=== PATIENT | female | born 1965 | race Asian ===

== ENCOUNTER → 2017-09-01 | Day surgery (SDC) | payer OTHER ==
[~2017-09-01] VITALS: Ht 142.2 cm; Wt 46.3 kg
[~2017-09-01] MED LIST: CALCIUM 500 +1 EAC5 PO; CLONIDINE HCL0.1 MG PO; LYRICA25 M1 PO; MAGNESIUM400 M1 PO; MONTELUKAST SOD10 M1 PO; OMEGA 3-6-9 11200 MG PO; OMEPRAZOLE40 M1 PO; VENTOLIN HFA18 GM INH; VITAMIN B122500 MC1; VITAMIN C1000 M4
--- NOTE | 2017-09-01 10:53 | Operative Report ---
Operative/Inv Procedure Report Surgery Date: 09/01/17 Name of Procedure: left shoulder arthroscope rotator cuff repair arthroscopic subacromial decompression acromioclavicular arthroplasty biceps tenodesis and debridement left slap lesion Pre-Operative Diagnosis: Internal derangement left shoulder Post-Operative Diagnosis: SLAP tear biceps tear impingement and before meals arthrosis rotator cuff tear Estimated Blood Loss: scant Surgeon/Line Pilot: Alfonso Salcedo MD,Bj Valenzuela Anesthesia: general endotracheal tube Operative/Procedure Note Note: The patient was brought to the operating room and placed on the table in the beachchair position due to her small habitus extra care was taken in positioning Antibiotics were given by anesthesia medical compression stockings were placed on the legs exam under anesthesia was remarkable for mild multidirectional instability and a truly tiny shoulder Bony landmarks were marked proper timeout was performed and after general and block anesthesia were induced the arthroscope was entered atraumatically through the posterior portal Biceps tenodesis The biceps was detached from the supraglenoid tubercle we went externally opened the groove it was ratty and torn there was heavy hypertrophic tenosynovitis we excoriated the bone using a bone instrument and then placed a 1.8 mm Q fix anchor and tenodesed the biceps securely using multiple sutures and knots. Arthroscopic subacromial decompression We did a large bursectomy took down the CA ligament and then did a biplanar bony acromioplasty using bone instruments for a significant anteromedial hook Acromioclavicular arthroplasty We now resected the entire distal aspect of the clavicle this was a formal arthroscopic Solo procedure performed using bone instruments the outer 11 mm were taken Rotator cuff repair Her rotator cuff was seen to be slightly torn from below however coming on top we saw a large amount of crystalline amorphus substance which could have been calcium or could have been the debris left over from corticosteroid injections this was all debrided away she had a rotator cuff tear which occupied the entire supraspinatus tendon which because of her small size in this case was about 2 cm. SLAP repair The supraglenoid insertion of the capsule labral complex was pathologic and ripped off we carefully debrided this down to good tissue this was a grade 1 leaving the allison as one piece. We excoriated and use cautery in this area to help it heal in place. We excoriated the juxta articular surface of the greater tuberosity down to punctate bleeding bone for healing we then placed a double loaded Q fix anchor by [employer] we had good pullback control we passed 2 horizontal mattresses and tied them down securely we then did a second row using 24.5 bio push locks by [employer] Her exam under anesthesia was now improved she had full passive range but better stability we closed the portals after final irrigation and debridement a dressing was applied a sling was applied she returned to recovery having tolerated the procedure well in good condition She will be discharged back to [facility] she will follow up with Dr. Phan's office she is being given Vicodin and Compazine she has apparent nausea with all narcotics however with the Compazine hopefully she will be able to get through when the block wears off I'm also giving her our standard shoulder sheet exercises careful expiration of activities has been gone over with the patient and her Marck Salcedo
== END ==
LOC: UNDOADMIN 04:35 → SDA 04:35 → STS 06:00 → EDSTATUS 07:00
DX: M75.42 Impingement syndrome of left shoulder (principal); M75.22 Bicipital tendinitis, left shoulder; M75.102 Unspecified rotator cuff tear or rupture of left shoulder, not specified as traumatic; K21.9 Gastro-esophageal reflux disease without esophagitis; M79.7 Fibromyalgia
CPT/HCPCS: SDA; 36415; C9290; J0171; J0690